=== PATIENT | female | born 1985 ===

== ENCOUNTER 2021-04-09 10:00 | Inpatient (IN) | payer MEDICAID ==
[2021-04-09] MEDS ORDERED: TERBUTALINE 1 MG/1 ML INJ SUB-Q PRN (11:31)
[2021-04-09] MEDS ORDERED: LIDOCAINE (2%) 20 MG/1 ML VIAL 20 ML MDV INFILTRATI ONE (11:31)
[2021-04-09] MEDS ORDERED: miSOPROStol 200 MCG TAB PR PRN (11:31)
[2021-04-09] MEDS ORDERED: CARBOPROST TROMETHAMINE 250 MCG/1 ML INJ IM PRN (11:31)
[2021-04-09] MEDS ORDERED: NALOXONE 0.4 MG/1 ML INJ IV PRN ×3 (11:31→17:30)
[2021-04-09] MEDS ORDERED: LOPERAMIDE 2 MG CAP PO PRN (11:31)
[2021-04-09] MEDS ORDERED: ACETAMINOPHEN 325 MG TAB PO PRN ×2 (11:31→17:30)
[2021-04-09] MEDS ORDERED: ePHEDrine SULFATE 50 MG/1 ML INJ IV PRN (11:31)
[2021-04-09] MEDS ORDERED: MINERAL OIL 30 ML ORAL LIQD PO PRN (11:31)
[2021-04-09] MEDS ORDERED: METHYLERGONOVINE MALEATE 0.2 MG/ML VIAL IM PRN (11:31)
[2021-04-09] MEDS ORDERED: OXYTOCIN 10 UNIT/1 ML INJ IM PRN (11:31)
[2021-04-09] MEDS ORDERED: BUTORPHANOL 2 MG/1 ML INJ IV PRN (11:31)
[2021-04-09] MEDS ORDERED: ONDANSETRON 4 MG/2 ML INJ IV PRN ×3 (11:31→19:00)
--- NOTE | 2021-04-09 11:43 | History and Physical Report ---
History of Present Illness Date of examination: 04/09/21 Date of admission: 04/09/2021 Chief complaint: Intense Labor Pains History of present illness: Care at [facility], course complicated by non- compliance with visits. Past History Past Medical History: no pertinent history Past Surgical History: no surgical history Family/Genetic History: diabetes (Mother) Social history: no significant social history - Obstetrical History Expected Date of Delivery: 04/06/21 Actual Gestation: 40 Week(s) 3 Day(s) : 5 Para: 4 Hx # Term Pregnancies: 4 Number of Living Children: 4 #1 Gender: Male year: 2,[birth year] Birthweight: 2.863 kg Method of Delivery: Vaginal Gestational age at delivery: 40 #2 Gender: Male year: 2,[birth year] Birthweight: 2.778 kg Method of Delivery: Vaginal Gestational age at delivery: 40 #3 Infant Gender: Male year: 2,016 Birthweight: 2.863 kg Method of Delivery: Vaginal Gestational age at delivery: 40 #4 Infant Gender: Female year: 2,017 Birthweight: 2.722 kg Method of Delivery: Vaginal Gestational age at delivery: 40 Medications and Allergies Allergies Allergy/AdvReac Type Severity Reaction Status Date / Time No Known Allergies Allergy Verified 07/05/15 09:44 Active Meds: Active Medications Acetaminophen (Acetaminophen 325 Mg Tab) 650 mg PO Q4H PRN PRN Reason: Pain, Mild (1-3) Butorphanol Tartrate (Butorphanol 2 Mg/1 Ml Inj) 1 mg IV Q2H PRN PRN Reason: Pain, Moderate(4-6) LABOR PAIN Carboprost Tromethamine (Carboprost Tromethamine 250 Mcg/1 Ml Inj) 250 mcg IM ONCE PRN PRN Reason: Uterine Bleeding Ephedrine Sulfate (Ephedrine Sulfate 50 Mg/1 Ml Inj) 10 mg IV Q2M PRN PRN Reason: Hypotension Fentanyl (Fentanyl 100 Mcg/2 Ml Inj) 100 mcg IV Q2H PRN PRN Reason: Pain,Severe (7-10) LABOR PAIN Oxytocin/Sodium Chloride (Pitocin/Ns 30 Unit/500ml) 30 units in 500 mls @ 2 mls/hr IV TITR RIO; Protocol Lactated Ringer's (Lactated Ringers) 1,000 mls @ 125 mls/hr IV DIRECT RIO Oxytocin/Sodium Chloride (Pitocin/Ns 30 Unit/500ml) 30 units in 500 mls @ 40 mls/hr IV TITR RIO; Protocol Lidocaine (Lidocaine (2%) 20 Mg/1 Ml Vial 20 Ml Mdv) 20 ml INFILTRATI ONCE ONE Stop: 04/09/21 11:32 Loperamide HCl (Loperamide 2 Mg Cap) 2 mg PO ONCE PRN PRN Reason: give with Hemabate Methylergonovine Maleate (Methylergonovine Maleate 0.2 Mg/Ml Vial) 0.2 mg IM ONCE PRN PRN Reason: Uterine Bleeding Mineral Oil (Mineral Oil 30 Ml Oral Liqd) 30 ml PO QHS PRN PRN Reason: Constipation Misoprostol (Misoprostol 200 Mcg Tab) 800 mcg GA ONCE PRN PRN Reason: Uterine Bleeding Naloxone HCl (Naloxone 0.4 Mg/1 Ml Inj) 0.1 mg IV Q2MIN PRN PRN Reason: Res Rate </= 8 or 02 SAT < 92% Ondansetron HCl (Ondansetron 4 Mg/2 Ml Inj) 4 mg IV Q8H PRN PRN Reason: Nausea And Vomiting Oxytocin (Oxytocin 10 Unit/1 Ml Inj) 10 unit IM ONCE PRN PRN Reason: Uterine Bleeding Terbutaline Sulfate (Terbutaline 1 Mg/1 Ml Inj) 0.25 mg SUB-Q ONCE PRN PRN Reason: Hyperstimulation/Hypertonicity Review of Systems All systems: negative - Vital Signs Vital signs: Vital Signs Pulse Pulse Ox 66 100 04/09/21 11:25 04/09/21 11:25 Temp Pulse Resp BP Pulse Ox 60 170/79 100 04/09/21 11:35 04/09/21 11:34 04/09/21 11:35 - Physical Exam Breasts: Positive: normal Cardiovascular: Regular rate Lungs: Positive: Clear to auscultation, Normal air movement Abdomen: Positive: normal appearance, soft, normal bowel sounds Genitourinary (Female): Positive: normal external genitalia, normal perenium Vagina: Positive: normal moisture Uterus: Positive: enlarged Anus/Rectum: Positive: normal perianal skin Extremities: Positive: normal - Obstetrical FHR: category 1 Uterine Contraction Monitor Mode: External Cervical Dilatation: 8 (Copious amount of thick mecoium stained fluids upon AROM @1123) Cervical Effacement Percentage: 70 station: -2 Uterine Contraction Pattern: Regular Uterine Tone Measurement Phase: Resting Uterine Contraction Intensity: Moderate Results All other labs normal. Assessment and Plan A: IUP @ 40 3/7 Weeks Category I Tracing Active Labor GBS Negative P: Admit to L&D Per Routine Orders AROM Anticipate
[2021-04-09] MEDS ORDERED: LACTATED RINGERS 1,000 ML IV SCH ×2 (11:45→14:00)
[2021-04-09] MEDS ORDERED: OXYTOCIN DRIP 30 UNITS/500 ML BAG IV SCH ×4 (12:00→16:00)
[2021-04-09 12:07] LABS: Hemoglobin 12.9 gm/dl (10.1-14.3); Mean Corpuscular HGB Conc 35 % (30-34); Mean Corpuscular Volume 91 fl (79-97); Platelet Count 103 K/mm3 (140-440); Red Blood Count 4.05 M/mm3 (3.65-5.03); Red Cell Distribution Width 13.1 % (13.2-15.2)
[2021-04-09] MEDS: fentaNYL 100 MCG/2 ML INJ IV PRN ×2 (12:56→20:29)
[2021-04-09] MEDS ORDERED: BICITRA ORAL LIQD 30ML ONE ×2 (13:50→13:51)
[2021-04-09] MEDS ORDERED: METOCLOPRAMIDE 10 MG/2 ML INJ ONE (13:50)
[2021-04-09] MEDS ORDERED: ceFAZolin/STERILE WATER 2 GM/20 ML SYRINGE IV ONE (13:50)
[2021-04-09] MEDS ORDERED: FAMOTIDINE 20 MG/2 ML INJ IV ONE ×2 (13:50→13:51)
[2021-04-09] MEDS ORDERED: METOCLOPRAMIDE 10 MG/2 ML INJ IV ONE (13:51)
[2021-04-09] MEDS ORDERED: ceFAZolin/Water 2 GM/20 ML 2 GM/20 ML SYRINGE IV ONE (13:51)
[2021-04-09] MEDS ORDERED: BICITRA ORAL LIQD 30ML PO ONE (13:51)
--- NOTE | 2021-04-09 13:51 | Progress Note ---
Assessment and Plan A: IUP @ 40 3/7 Weeks Category I Tracing Active Labor Breech Presentation GBS Negative P: Consult Dr. Lanier for Stat Pre-Op orders Transfer patient to OR Subjective - Subjective Date of service: 04/09/21 Interval history: Care at [facility], course complicated by non- compliance with visits. Objective - Vital Signs Vital Signs: Vital Signs - 12hr 04/09/21 04/09/21 04/09/21 11:25 11:30 11:31 Temperature Pulse Rate 66 58 L 57 L Respiratory Rate Blood Pressure 167/91 O2 Sat by Pulse 100 99 Oximetry 04/09/21 04/09/21 04/09/21 11:34 11:35 11:40 Temperature Pulse Rate 61 60 57 L Respiratory Rate Blood Pressure 170/79 O2 Sat by Pulse 100 99 Oximetry 04/09/21 04/09/21 04/09/21 11:43 11:45 11:50 Temperature 98.1 F Pulse Rate 57 L 62 Respiratory Rate Blood Pressure O2 Sat by Pulse 100 99 100 Oximetry 04/09/21 04/09/21 04/09/21 11:55 12:00 12:05 Temperature Pulse Rate 60 61 62 Respiratory Rate Blood Pressure O2 Sat by Pulse 99 99 98 Oximetry 04/09/21 04/09/21 04/09/21 12:10 12:15 12:20 Temperature Pulse Rate 59 L 60 62 Respiratory Rate Blood Pressure O2 Sat by Pulse 99 99 99 Oximetry 04/09/21 04/09/21 04/09/21 12:25 12:30 12:35 Temperature Pulse Rate 77 63 69 Respiratory Rate Blood Pressure O2 Sat by Pulse 100 99 99 Oximetry 04/09/21 04/09/21 04/09/21 12:37 12:40 12:45 Temperature Pulse Rate 74 60 61 Respiratory Rate Blood Pressure 190/102 O2 Sat by Pulse 98 99 Oximetry 04/09/21 04/09/21 04/09/21 12:48 12:50 12:55 Temperature Pulse Rate 62 74 68 Respiratory Rate Blood Pressure 163/81 O2 Sat by Pulse 99 99 Oximetry 04/09/21 04/09/21 04/09/21 12:56 13:00 13:01 Temperature Pulse Rate 62 73 Respiratory 22 Rate Blood Pressure O2 Sat by Pulse 98 93 Oximetry 04/09/21 04/09/21 04/09/21 13:04 13:05 13:10 Temperature Pulse Rate 67 82 79 Respiratory Rate Blood Pressure 161/79 O2 Sat by Pulse 98 97 Oximetry 04/09/21 04/09/21 04/09/21 13:15 13:19 13:20 Temperature Pulse Rate 68 65 74 Respiratory Rate Blood Pressure 167/81 O2 Sat by Pulse 99 99 Oximetry 04/09/21 04/09/21 04/09/21 13:25 13:27 13:30 Temperature Pulse Rate 93 H 57 L 92 H Respiratory Rate Blood Pressure O2 Sat by Pulse 96 90 96 Oximetry 04/09/21 04/09/21 04/09/21 13:32 13:33 13:37 Temperature Pulse Rate 83 66 88 Respiratory Rate Blood Pressure 161/78 O2 Sat by Pulse 93 98 Oximetry 04/09/21 04/09/21 13:40 13:43 Temperature Pulse Rate 55 L 82 Respiratory Rate Blood Pressure O2 Sat by Pulse 82 L 98 Oximetry - Exam Breasts: normal Abdomen: Present: normal appearance, soft Uterus: Present: normal, firm, fundal height above umbilicus FHR: category 1 Uterine Contraction Monitor Mode: External Cervical Dilatation: 10 (Breech presentation; thick meconium) Cervical Effacement Percentage: 100 station: +1 Uterine Contraction Pattern: Regular Uterine Tone Measurement Phase: Resting Uterine Contraction Intensity: Moderate Extremities: normal - Labs Labs: Abnormal Labs 04/09/21 11:10 MCHC 35 H RDW 13.1 L Plt Count 103 L Laboratory Results - last 24 hr 04/09/21 11:10 WBC 10.5 RBC 4.05 Hgb 12.9 Hct 37.0 MCV 91 MCH 32 MCHC 35 H RDW 13.1 L Plt Count 103 L
[2021-04-09] MEDS ORDERED: LIDOCAINE MPF (2%) 20 MG/1 ML VIAL 5 ML ONE (13:52)
[2021-04-09] MEDS ORDERED: SUCCINYLCHOLINE CHLORIDE 200 MG/10 ML INJ MDV ONE (13:53)
[2021-04-09] MEDS ORDERED: propofoL 200 MG/20 ML VIAL IV ONE (13:53)
[2021-04-09] MEDS ORDERED: SODIUM CHLORIDE 0.9% IRR 1,500 ML BOTTLE IR ONE (13:59)
[2021-04-09] MEDS ORDERED: ceFAZolin/Water 2 GM/20 ML 2 GM/20 ML SYRINGE IV NR (14:00)
[2021-04-09] MEDS ORDERED: HYDROmorphone 1 MG/1 ML INJ ONE (14:07)
[2021-04-09] MEDS ORDERED: KETOROLAC 30 MG/1 ML INJ ONE (14:07)
[2021-04-09] MEDS ORDERED: ONDANSETRON 4 MG/2 ML INJ ONE (14:07)
[2021-04-09] MEDS ORDERED: ePHEDrine SULFATE 50 MG/1 ML INJ ONE (14:18)
[2021-04-09] MEDS ORDERED: dexAMETHasone 20 MG/5 ML VIAL ONE (14:21)
[2021-04-09] MEDS ORDERED: BUPIVACAINE/PF (0.25%) 2.5 MG/ML 30 ML VIAL INFILTRATI ONE (14:21)
[2021-04-09] MEDS ORDERED: LACTATED RINGERS 1,000 ML ONE (15:19)
--- NOTE | 2021-04-09 15:52 | Procedure Note ---
OB Delivery Note - Delivery Date of Delivery: 04/09/21 Surgeon: MARLO JOSEPH JR Estimated blood loss: other (1490cc) - Section Preop diagnosis: breech Postop diagnosis: same section procedure: section, primary low transverse Disposition: PACU Complications: none Narrative: Indication: 36-year-old at 40w3d with reportedly on complicated plan of care presenting in active labor, however during the labor course was found to be breech presentation, fully dilated, with thick meconium for emergency primary C- section for malpresentation. Findings: Normal uterus, tubes and ovaries. Thick meconium stained fluid. No nuchal cord. Distended bladder, hernandez not placed prior to start of procedure given parts noted at perineum. Mild uterine atony improved with hemabate. Delivery of male at 1403 Weight 3370g Height 20.5 in APGARS 4/8 QBL 1490cc IVF 1800cc UOP 300cc Procedure: Patient was taken to the operating room prepped and draped urgently after splashing Betadine on the abdomen without 3 minutes of bleeding. Patient was intubated given speed level of dilation. Pfannenstiel skin incision was made and carried down to the underlying fascia. Fascia was incised and the incision was distended bilaterally. Rectus fascia was dissected off the rectus muscle superiorly and inferiorly. Peritoneum was identified and entered. Peritoneal incision extended superiorly and inferiorly. The bladder was visualized. The bladder blade was placed. Uterine hysterotomy incision was made and extended bilaterally. The baby was delivered in a breech fashion starting with the right leg, followed by the right leg, followed by the left arm, followed by the right arm, followed by the head. Baby was bulb suction at delivery. The cord was cut and clamped and handed off to the team. The placenta was delivered spontaneously. The uterus was exteriorized and cleared of all clots and debris. Uterine incision was closed with a 0 Vicryl in a running locked fashion. Good hemostasis was noted after multiple [id number] and running sutures applied to the uterine incision. Uterine atony was noted and hemabate was given x 1 with appropriate response. Surgicel powder and Surgicel was applied to the uterine incisional base to provide hemostasis. The bladder grossly appeared to be intact. Uterus, tubes, and ovaries were returned to the abdominal cavity. Bilateral gutters were cleared and the abdomen and pelvis were irrigated. Good hemostasis noted. The rectus muscle was reapproximated with 2-0 Vicryl. Attention was directed towards the rectus fascia which was reapproximated with 0 PDS in a running fashion. The subcutaneous tissue was irrigated and reapproximated with 2-0 Vicryl in a running fashion. Skin was closed with a 4-0 Vicryl in a subcuticular fashion. The procedure was completed and the patient tolerated the procedure well. All instruments and lap counts were correct x2. - A at 1 minute: 4 at 5 minutes: 8 Infant Gender: Male
[2021-04-09] MEDS ORDERED: hydrALAZINE 20 MG/1 ML INJ IV PRN ×2 (16:15→17:30)
[2021-04-09] MEDS ORDERED: hydrALAZINE 20 MG/1 ML INJ ONE (16:16)
--- NOTE | 2021-04-09 16:39 | Anesthesia Consultation ---
Anesthesia Consult and Med Hx Date of service: 04/09/21 - Airway Anesthetic Teeth Evaluation: Good ROM Head & Neck: Adequate Mental/Hyoid Distance: Adequate Mallampati Class: Class I Intubation Access Assessment: Good - Pulmonary Exam CTA: Yes - Cardiac Exam Cardiac Exam: RRR - Pre-Operative Health Status ASA Pre-Surgery Classification: ASA2, Emergency Proposed Anesthetic Plan: General Nerve Block: TAP - Pulmonary Hx Smoking: No Hx Asthma: No COPD: No Hx Pneumonia: No Hx Sleep Apnea: No - Cardiovascular System Hx Hypertension: No Hx Heart Attack/AMI: No Hx Angina: No - Central Nervous System Hx Seizures: No Hx Psychiatric Problems: No - Gastrointestinal Hx Gastroesophageal Reflux Disease: No - Endocrine Hx Renal Disease: No Hx End Stage Renal Disease: No Hx Liver Disease: No Hx Insulin Dependent Diabetes: No Hx Non-Insulin Dependent Diabetes: No Hx Hypothyroidism: No Hx Hyperthyroidism: No - Hematic Hx Anemia: No Hx Sickle Cell Disease: No - Other Systems Hx Alcohol Use: No
--- NOTE | 2021-04-09 16:39 | Anesthesia Day of Surgery ---
Anesthesia Day of Surgery - Day of Surgery Patient Examined: Yes Patient H&P Reviewed: Yes Patient is NPO: Yes Beta Blockers: No Cardiac Clearance: No Pulmonary Clearance: No Bahman's Test: N/A
[2021-04-09] MEDS ORDERED: MAGNESIUM SULFATE 4 GM/100 ML BAG IV SCH (17:00)
[2021-04-09] MEDS ORDERED: MORPHINE 4 MG/1 ML INJ IV PRN (17:30)
[2021-04-09] MEDS ORDERED: SENNOSIDES 8.6 MG TAB PO PRN (17:30)
[2021-04-09] MEDS ORDERED: oxyCODONE /ACETAMINOPHEN 5-325MG TAB PO PRN (17:30)
[2021-04-09] MEDS ORDERED: PROMETHAZINE 25 MG RECT SUPP PR PRN (17:30)
[2021-04-09] MEDS ORDERED: SIMETHICONE 80 MG CHEW TAB PO PRN (17:30)
[2021-04-09] MEDS ORDERED: HYDROmorphone 1 MG/1 ML INJ IV PRN (17:30)
[2021-04-09] MEDS ORDERED: LANOLIN/ZINC/DIMETHICONE (LANSINOH) 7 GM TP PRN (17:30)
[2021-04-09] MEDS ORDERED: WITCH HAZEL/ GLYCERIN PAD TP PRN (18:00)
[2021-04-09] MEDS ORDERED: MAGNESIUM SULFATE 40GM/1000ML 40 GM/1,000 ML BAG IV SCH (18:00)
[2021-04-09 19:22] LABS: Alanine Aminotransferase 29 units/L (7-56); Uric Acid 4.8 mg/dL (3.5-7.6)
--- NOTE | 2021-04-09 19:51 | Event Note ---
Date: 04/09/21 Late entry. Immediately after delivery once stabilized patient had multiple elevated blood pressures in the 160s requiring hydralazine x2. Given this finding PI labs ordered and patient was presumed severe preeclampsia by blood pressure for 24-hours of magnesium. IV antihypertensives as needed as needed for high blood pressure.
[2021-04-09 21:03] LABS: Hematocrit 33.9 % (30.3-42.9); Hemoglobin 11.4 gm/dl (10.1-14.3); Mean Corpuscular HGB Conc 34 % (30-34); Mean Corpuscular Volume 92 fl (79-97); Red Blood Count 3.68 M/mm3 (3.65-5.03); Red Cell Distribution Width 13.2 % (13.2-15.2)
[2021-04-09 21:04] LABS: Platelet Count 99 K/mm3 (140-440)
[2021-04-09] MEDS ORDERED: HYDROCORTISONE 25 MG RECTAL SUPP PR PRN (22:00)
[2021-04-09] MEDS ORDERED: MAGNESIUM HYDROXIDE (MOM) ORAL LIQD UDC PO PRN (22:00)
[2021-04-09 22:06] LABS: Total Cells Counted 100
[2021-04-09 22:07] LABS: Platelet Estimate Consistent w Auto; RBC Morphology Normal
[2021-04-10 04:51] LABS: Hematocrit 30.3 % (30.3-42.9); Hemoglobin 10.6 gm/dl (10.1-14.3)
[2021-04-10] MEDS ORDERED: FLU VACC QUAD 2021-22(6MOS UP)/PF 60 MCG/0.5 ML SYRINGE IM ONE (06:00)
--- NOTE | 2021-04-10 11:42 | Progress Note ---
Assessment and Plan POD#1 C/Sect for breech on MgSO4 for preeclampsia, with headache now 1. Will stop the mag sulfate with level 7.8 and pt with headache, BP normal and pt to remain on labor and delivery for 24hrs post delivery 2. Will add labetalol 100mg bid if BP starts trending upwards 3. May remove hernandez cath with mag stopped after 2hrs if BP remains stable 4. Routine care. Subjective Date of service: 04/10/21 Principal diagnosis: POD#1 C/S for breech; now preeclampsia on mag sulfate Interval history: Pt admits to pain controlled well with meds, however pt has headache. Vag bleed scant. pt denies passing flatus. Denies N/V. Mag sulfate in progress and urinary output clear in hernandez cath. Objective - Constitutional Vitals: Vital Signs - 12hr 04/09/21 04/09/21 04/09/21 23:39 23:44 23:49 Temperature Pulse Rate 91 H 89 87 Respiratory Rate Blood Pressure 133/75 Blood Pressure [Right] O2 Sat by Pulse 98 98 97 Oximetry O2 Sat by Pulse Oximetry [ Throughout] 04/09/21 04/09/21 04/10/21 23:54 23:59 00:04 Temperature Pulse Rate 85 82 80 Respiratory Rate Blood Pressure Blood Pressure [Right] O2 Sat by Pulse 99 98 98 Oximetry O2 Sat by Pulse Oximetry [ Throughout] 04/10/21 04/10/21 04/10/21 00:09 00:14 00:19 Temperature Pulse Rate 87 83 82 Respiratory Rate Blood Pressure 134/74 Blood Pressure [Right] O2 Sat by Pulse 98 98 98 Oximetry O2 Sat by Pulse Oximetry [ Throughout] 04/10/21 04/10/21 04/10/21 00:24 00:29 00:34 Temperature Pulse Rate 87 86 86 Respiratory Rate Blood Pressure Blood Pressure [Right] O2 Sat by Pulse 98 98 98 Oximetry O2 Sat by Pulse Oximetry [ Throughout] 04/10/21 04/10/21 04/10/21 00:39 00:44 00:49 Temperature Pulse Rate 84 84 80 Respiratory Rate Blood Pressure 133/76 Blood Pressure [Right] O2 Sat by Pulse 98 98 98 Oximetry O2 Sat by Pulse Oximetry [ Throughout] 04/10/21 04/10/21 04/10/21 00:54 00:59 01:04 Temperature Pulse Rate 92 H 81 83 Respiratory Rate Blood Pressure Blood Pressure [Right] O2 Sat by Pulse 98 97 98 Oximetry O2 Sat by Pulse Oximetry [ Throughout] 04/10/21 04/10/21 04/10/21 01:09 01:14 01:19 Temperature Pulse Rate 85 83 82 Respiratory Rate Blood Pressure 132/73 Blood Pressure [Right] O2 Sat by Pulse 98 98 98 Oximetry O2 Sat by Pulse Oximetry [ Throughout] 04/10/21 04/10/21 04/10/21 01:24 01:29 01:34 Temperature Pulse Rate 87 86 84 Respiratory Rate Blood Pressure Blood Pressure [Right] O2 Sat by Pulse 99 98 98 Oximetry O2 Sat by Pulse Oximetry [ Throughout] 04/10/21 04/10/21 04/10/21 01:39 01:44 01:49 Temperature Pulse Rate 87 83 82 Respiratory 12 Rate Blood Pressure 134/78 Blood Pressure [Right] O2 Sat by Pulse 98 98 97 Oximetry O2 Sat by Pulse Oximetry [ Throughout] 04/10/21 04/10/21 04/10/21 01:54 01:59 02:04 Temperature Pulse Rate 83 84 84 Respiratory Rate Blood Pressure Blood Pressure [Right] O2 Sat by Pulse 98 98 98 Oximetry O2 Sat by Pulse Oximetry [ Throughout] 04/10/21 04/10/21 04/10/21 02:09 02:14 02:19 Temperature Pulse Rate 88 82 84 Respiratory Rate Blood Pressure 134/76 Blood Pressure [Right] O2 Sat by Pulse 99 98 98 Oximetry O2 Sat by Pulse Oximetry [ Throughout] 04/10/21 04/10/21 04/10/21 02:24 02:29 02:34 Temperature Pulse Rate 82 80 80 Respiratory Rate Blood Pressure Blood Pressure [Right] O2 Sat by Pulse 98 98 97 Oximetry O2 Sat by Pulse Oximetry [ Throughout] 04/10/21 04/10/21 04/10/21 02:39 02:44 02:49 Temperature Pulse Rate 88 77 77 Respiratory Rate Blood Pressure 132/74 Blood Pressure [Right] O2 Sat by Pulse 98 98 98 Oximetry O2 Sat by Pulse Oximetry [ Throughout] 04/10/21 04/10/21 04/10/21 02:54 02:59 03:04 Temperature Pulse Rate 82 86 78 Respiratory Rate Blood Pressure Blood Pressure [Right] O2 Sat by Pulse 97 98 97 Oximetry O2 Sat by Pulse Oximetry [ Throughout] 04/10/21 04/10/21 04/10/21 03:09 03:14 03:19 Temperature Pulse Rate 79 80 77 Respiratory Rate Blood Pressure 133/76 Blood Pressure [Right] O2 Sat by Pulse 97 97 97 Oximetry O2 Sat by Pulse Oximetry [ Throughout] 04/10/21 04/10/21 04/10/21 03:24 03:29 03:30 Temperature Pulse Rate 76 77 Respiratory 13 Rate Blood Pressure Blood Pressure [Right] O2 Sat by Pulse 97 97 98 Oximetry O2 Sat by Pulse Oximetry [ Throughout] 04/10/21 04/10/21 04/10/21 03:34 03:39 03:44 Temperature Pulse Rate 76 74 77 Respiratory Rate Blood Pressure 122/68 Blood Pressure [Right] O2 Sat by Pulse 97 97 98 Oximetry O2 Sat by Pulse Oximetry [ Throughout] 04/10/21 04/10/21 04/10/21 03:49 03:54 03:59 Temperature Pulse Rate 76 77 74 Respiratory Rate Blood Pressure Blood Pressure [Right] O2 Sat by Pulse 97 97 97 Oximetry O2 Sat by Pulse Oximetry [ Throughout] 04/10/21 04/10/21 04/10/21 04:04 04:09 04:14 Temperature Pulse Rate 95 H 87 78 Respiratory Rate Blood Pressure 131/74 Blood Pressure [Right] O2 Sat by Pulse 98 98 98 Oximetry O2 Sat by Pulse Oximetry [ Throughout] 04/10/21 04/10/21 04/10/21 04:19 04:24 04:29 Temperature Pulse Rate 87 88 79 Respiratory Rate Blood Pressure Blood Pressure [Right] O2 Sat by Pulse 97 98 99 Oximetry O2 Sat by Pulse Oximetry [ Throughout] 04/10/21 04/10/21 04/10/21 04:34 04:39 04:44 Temperature Pulse Rate 84 85 85 Respiratory Rate Blood Pressure 133/72 Blood Pressure [Right] O2 Sat by Pulse 97 99 99 Oximetry O2 Sat by Pulse Oximetry [ Throughout] 04/10/21 04/10/21 04/10/21 04:49 04:54 04:59 Temperature Pulse Rate 80 83 84 Respiratory Rate Blood Pressure Blood Pressure [Right] O2 Sat by Pulse 99 98 98 Oximetry O2 Sat by Pulse Oximetry [ Throughout] 04/10/21 04/10/21 04/10/21 05:04 05:09 05:14 Temperature Pulse Rate 86 79 76 Respiratory Rate Blood Pressure 129/67 Blood Pressure [Right] O2 Sat by Pulse 98 98 97 Oximetry O2 Sat by Pulse Oximetry [ Throughout] 04/10/21 04/10/21 04/10/21 05:19 05:24 05:29 Temperature Pulse Rate 76 77 74 Respiratory Rate Blood Pressure Blood Pressure [Right] O2 Sat by Pulse 98 97 97 Oximetry O2 Sat by Pulse Oximetry [ Throughout] 04/10/21 04/10/21 04/10/21 05:30 05:34 05:39 Temperature Pulse Rate 76 73 Respiratory Rate Blood Pressure Blood Pressure [Right] O2 Sat by Pulse 96 97 97 Oximetry O2 Sat by Pulse Oximetry [ Throughout] 04/10/21 04/10/21 04/10/21 05:44 05:49 05:54 Temperature Pulse Rate 74 71 71 Respiratory Rate Blood Pressure 112/64 Blood Pressure [Right] O2 Sat by Pulse 96 96 96 Oximetry O2 Sat by Pulse Oximetry [ Throughout] 04/10/21 04/10/21 04/10/21 05:59 06:04 06:09 Temperature Pulse Rate 71 80 84 Respiratory Rate Blood Pressure Blood Pressure [Right] O2 Sat by Pulse 96 98 98 Oximetry O2 Sat by Pulse Oximetry [ Throughout] 04/10/21 04/10/21 04/10/21 06:14 06:19 06:24 Temperature Pulse Rate 79 77 77 Respiratory Rate Blood Pressure 130/76 Blood Pressure [Right] O2 Sat by Pulse 98 98 98 Oximetry O2 Sat by Pulse Oximetry [ Throughout] 04/10/21 04/10/21 04/10/21 06:29 06:34 06:39 Temperature Pulse Rate 79 78 77 Respiratory Rate Blood Pressure Blood Pressure [Right] O2 Sat by Pulse 98 98 98 Oximetry O2 Sat by Pulse Oximetry [ Throughout] 04/10/21 04/10/21 04/10/21 06:44 06:49 06:54 Temperature Pulse Rate 76 75 77 Respiratory Rate Blood Pressure 133/69 Blood Pressure [Right] O2 Sat by Pulse 98 98 99 Oximetry O2 Sat by Pulse Oximetry [ Throughout] 04/10/21 04/10/21 04/10/21 06:59 07:04 07:09 Temperature Pulse Rate 80 78 77 Respiratory Rate Blood Pressure Blood Pressure [Right] O2 Sat by Pulse 98 98 99 Oximetry O2 Sat by Pulse Oximetry [ Throughout] 04/10/21 04/10/2104/10/21 07:14 07:19 07:24 Temperature Pulse Rate 72 77 75 Respiratory Rate Blood Pressure 127/67 Blood Pressure [Right] O2 Sat by Pulse 98 98 98 Oximetry O2 Sat by Pulse Oximetry [ Throughout] 04/10/21 04/10/21 04/10/21 07:29 07:34 07:39 Temperature Pulse Rate 75 74 72 Respiratory Rate Blood Pressure Blood Pressure [Right] O2 Sat by Pulse 98 97 97 Oximetry O2 Sat by Pulse Oximetry [ Throughout] 04/10/21 04/10/21 04/10/21 07:44 07:49 07:52 Temperature Pulse Rate 70 74 84 Respiratory Rate Blood Pressure 106/58 112/62 Blood Pressure [Right] O2 Sat by Pulse 96 97 Oximetry O2 Sat by Pulse Oximetry [ Throughout] 04/10/21 04/10/21 04/10/21 07:54 07:55 07:59 Temperature 98.2 F Pulse Rate 87 79 Respiratory 17 Rate Blood Pressure Blood Pressure 112/62 [Right] O2 Sat by Pulse 98 98 Oximetry O2 Sat by Pulse 98 Oximetry [ Throughout] 04/10/21 04/10/21 04/10/21 08:04 08:09 08:14 Temperature Pulse Rate 77 74 70 Respiratory Rate Blood Pressure 105/55 Blood Pressure [Right] O2 Sat by Pulse 97 97 96 Oximetry O2 Sat by Pulse Oximetry [ Throughout] 04/10/21 04/10/21 04/10/21 08:19 08:24 08:29 Temperature Pulse Rate 72 70 72 Respiratory Rate Blood Pressure Blood Pressure [Right] O2 Sat by Pulse 97 97 97 Oximetry O2 Sat by Pulse Oximetry [ Throughout] 04/10/21 04/10/21 04/10/21 08:34 08:39 08:44 Temperature Pulse Rate 73 74 71 Respiratory Rate Blood Pressure 118/63 Blood Pressure [Right] O2 Sat by Pulse 97 97 97 Oximetry O2 Sat by Pulse Oximetry [ Throughout] 04/10/21 04/10/21 04/10/21 08:49 08:54 08:59 Temperature Pulse Rate 68 70 69 Respiratory Rate Blood Pressure Blood Pressure [Right] O2 Sat by Pulse 97 97 97 Oximetry O2 Sat by Pulse Oximetry [ Throughout] 04/10/21 04/10/21 04/10/21 09:04 09:09 09:14 Temperature Pulse Rate 72 75 78 Respiratory Rate Blood Pressure 117/61 Blood Pressure [Right] O2 Sat by Pulse 97 98 98 Oximetry O2 Sat by Pulse Oximetry [ Throughout] 04/10/21 04/10/21 04/10/21 09:19 09:24 09:29 Temperature Pulse Rate 77 75 82 Respiratory Rate Blood Pressure Blood Pressure [Right] O2 Sat by Pulse 98 98 97 Oximetry O2 Sat by Pulse Oximetry [ Throughout] 04/10/21 04/10/21 04/10/21 09:34 09:39 09:44 Temperature Pulse Rate 77 75 74 Respiratory Rate Blood Pressure 137/70 Blood Pressure [Right] O2 Sat by Pulse 98 98 97 Oximetry O2 Sat by Pulse Oximetry [ Throughout] 04/10/21 04/10/21 04/10/21 09:49 09:54 09:59 Temperature Pulse Rate 71 74 79 Respiratory Rate Blood Pressure Blood Pressure [Right] O2 Sat by Pulse 97 98 99 Oximetry O2 Sat by Pulse Oximetry [ Throughout] 04/10/21 04/10/21 04/10/21 10:04 10:09 10:14 Temperature Pulse Rate 70 70 69 Respiratory Rate Blood Pressure 109/58 Blood Pressure [Right] O2 Sat by Pulse 97 97 97 Oximetry O2 Sat by Pulse Oximetry [ Throughout] 04/10/21 04/10/21 04/10/21 10:19 10:24 10:29 Temperature Pulse Rate 71 76 70 Respiratory Rate Blood Pressure Blood Pressure [Right] O2 Sat by Pulse 96 97 97 Oximetry O2 Sat by Pulse Oximetry [ Throughout] 04/10/21 04/10/21 04/10/21 10:34 10:39 10:44 Temperature Pulse Rate 77 79 76 Respiratory Rate Blood Pressure 122/72 Blood Pressure [Right] O2 Sat by Pulse 98 98 98 Oximetry O2 Sat by Pulse Oximetry [ Throughout] 04/10/21 04/10/21 04/10/21 10:49 10:54 10:59 Temperature Pulse Rate 77 77 78 Respiratory Rate Blood Pressure Blood Pressure [Right] O2 Sat by Pulse 98 98 98 Oximetry O2 Sat by Pulse Oximetry [ Throughout] 04/10/21 04/10/21 04/10/21 11:04 11:09 11:14 Temperature Pulse Rate 78 83 78 Respiratory Rate Blood Pressure 130/80 Blood Pressure [Right] O2 Sat by Pulse 98 98 98 Oximetry O2 Sat by Pulse Oximetry [ Throughout] 04/10/21 04/10/21 04/10/21 11:19 11:24 11:29 Temperature Pulse Rate 84 78 76 Respiratory Rate Blood Pressure Blood Pressure [Right] O2 Sat by Pulse 97 99 99 Oximetry O2 Sat by Pulse Oximetry [ Throughout] 04/10/21 11:34 Temperature Pulse Rate 73 Respiratory Rate Blood Pressure Blood Pressure [Right] O2 Sat by Pulse 99 Oximetry O2 Sat by Pulse Oximetry [ Throughout] General appearance: Present: no acute distress - Respiratory Respiratory effort: normal - Breasts Breasts: deferred - Cardiovascular Rhythm: regular Extremities: No edema - Gastrointestinal General gastrointestinal: Present: soft (Incision C/D/I with dressing in place), non-tender, hypoactive bowel sounds - Neurologic Neurologic: moves all extremities - Psychiatric Psychiatric: cooperative - Labs CBC & Chem 7: 04/10/21 04:34 04/09/21 Unknown Labs: Abnormal lab results 04/09/21 04/09/21 04/09/21 Range/Units 11:10 14:29 14:32 WBC (4.5-11.0) K/mm3 MCHC 35 H (30-34) % RDW 13.1 L (13.2-15.2) % Plt Count 103 L (140-440) K/mm3 Lymphocytes % (Manual) (13.4-35.0) % Seg Neutrophils # Man (1.8-7.7) K/mm3 Lymphocytes # (Manual) (1.2-5.4) K/mm3 ABG pH 7.004 L 7.104 L (7.320-7.450) POC ABG pCO2 57.1 H (32.0-48.0) mmHg POC ABG pO2 21.6 L 40.7 L (83-108) mmHg ABG Oxyhemoglobin 27.3 L 69.7 L (94-98) ABG Sodium 132.9 L (136.0-145.0) mmol/L ABG Potassium 4.6 H 4.7 H (3.40-4.50) mmol/L Carboxyhemoglobin 0.3 L (0.5-1.5) Magnesium (1.7-2.3) mg/dL AST (5-40) units/L Lactate Dehydrogenase (91-180) units/L Arterial Blood Ionized Calcium 5.4 H 5.5 H (4.6-5.3) mg/dL 04/09/21 04/09/21 04/09/21 Range/Units 19:38 19:38 Unknown WBC 19.1 H (4.5-11.0) K/mm3 MCHC (30-34) % RDW (13.2-15.2) % Plt Count 99 L (140-440) K/mm3 Lymphocytes % (Manual) 3.0 L (13.4-35.0) % Seg Neutrophils # Man 18.0 H (1.8-7.7) K/mm3 Lymphocytes # (Manual) 0.6 L (1.2-5.4) K/mm3 ABG pH (7.320-7.450) POC ABG pCO2 (32.0-48.0) mmHg POC ABG pO2 (83-108) mmHg ABG Oxyhemoglobin (94-98) ABG Sodium (136.0-145.0) mmol/L ABG Potassium (3.40-4.50) mmol/L Carboxyhemoglobin (0.5-1.5) Magnesium 5.20 H (1.7-2.3) mg/dL AST 47 H (5-40) units/L Lactate Dehydrogenase 211 H (91-180) units/L Arterial Blood Ionized Calcium (4.6-5.3) mg/dL 04/10/21 04/10/21 Range/Units 01:28 10:30 WBC (4.5-11.0) K/mm3 MCHC (30-34) % RDW (13.2-15.2) % Plt Count (140-440) K/mm3 Lymphocytes % (Manual) (13.4-35.0) % Seg Neutrophils # Man (1.8-7.7) K/mm3 Lymphocytes # (Manual) (1.2-5.4) K/mm3 ABG pH (7.320-7.450) POC ABG pCO2 (32.0-48.0) mmHg POC ABG pO2 (83-108) mmHg ABG Oxyhemoglobin (94-98) ABG Sodium (136.0-145.0) mmol/L ABG Potassium (3.40-4.50) mmol/L Carboxyhemoglobin (0.5-1.5) Magnesium 6.30 H 7.80 H (1.7-2.3) mg/dL AST (5-40) units/L Lactate Dehydrogenase (91-180) units/L Arterial Blood Ionized Calcium (4.6-5.3) mg/dL Medications & Allergies - Medications Allergies/Adverse Reactions: Allergies No Known Allergies Allergy (Verified 07/05/15 09:44) Home Medications: Home Medications Medication Instructions Recorded Confirmed Last Taken Type Ibuprofen [Motrin 800 MG tab] 800 mg PO Q6H PRN #30 tablet 04/09/21 Unknown Rx One Daily Tablet 1 tab PO DAILY 04/09/21 04/09/21 04/04/21 History oxyCODONE /ACETAMINOPHEN [Percocet 1 tab PO Q6H PRN #30 tablet 04/09/21 Unknown Rx 5/325 mg] Active Medications: Generic Name Dose Route Start Last Admin Trade Name Freq PRN Reason Stop Dose Admin Acetaminophen 650 mg 04/09/21 17:30 Acetaminophen 325 Mg Tab PO Q4H PRN Fever >100.5/BOCANEGRA Butorphanol Tartrate 1 mg 04/09/21 11:31 Butorphanol 2 Mg/1 Ml Inj IV Q2H PRN Pain, Moderate(4-6) LABOR PAIN Carboprost Tromethamine 250 mcg 04/09/21 11:31 Carboprost Tromethamine 250 Mcg/1 Ml Inj IM ONCE PRN Uterine Bleeding Ephedrine Sulfate 10 mg 04/09/21 11:31 Ephedrine Sulfate 50 Mg/1 Ml Inj IV Q2M PRN Hypotension Fentanyl 100 mcg 04/09/21 11:31 04/09/21 12:56 Fentanyl 100 Mcg/2 Ml Inj IV 100 mcg Q2H PRN Administration Pain,Severe (7-10) LABOR PAIN Hydralazine HCl 10 mg 04/09/21 17:30 04/09/21 16:30 Hydralazine 20 Mg/1 Ml Inj IV 10 mg Q30MIN PRN Administration Hypertension Hydrocortisone Acetate 25 mg 04/09/21 22:00 Hydrocortisone 25 Mg Rectal Supp IA BID PRN Hemorrhoids Oxytocin/Sodium Chloride 30 units in 500 mls @ 2 mls/hr 04/09/21 12:00 04/09/21 12:58 Pitocin/Ns 30 Unit/500ml IV 2 ml/hr TITR RIO 2 mls/hr Administration Protocol Lactated Ringer's 1,000 mls @ 125 mls/hr 04/09/21 11:45 04/09/21 12:31 Lactated Ringers IV 125 mls/hr DIRECT RIO Administration Oxytocin/Sodium Chloride 30 units in 500 mls @ 40 mls/hr 04/09/21 12:00 Pitocin/Ns 30 Unit/500ml IV TITR RIO Protocol Lactated Ringer's 1,000 mls @ 2,250 mls/hr 04/09/21 14:00 Lactated Ringers IV 04/10/21 14:27 PREOP RIO Oxytocin/Sodium Chloride 30 units in 500 mls @ 0 mls/hr 04/09/21 14:00 Pitocin/Ns 30 Unit/500ml IV TITR RIO Protocol As Directed Oxytocin/Sodium Chloride 30 units in 500 mls @ 40 mls/hr 04/09/21 16:00 Pitocin/Ns 30 Unit/500ml IV TITR RIO Protocol Magnesium Sulfate 40 gm in 1,000 mls @ 50 mls/hr 04/09/21 18:00 04/09/21 19:01 Magnesium Sulfate 40gm/1000ml IV 2 gm/hr DIRECT RIO 50 mls/hr Administration 2 GM/HR Cefazolin Sodium 2 gm/ Sodium 100 mls @ 200 mls/hr 04/09/21 19:15 04/10/21 04:03 Chloride IV 200 mls/hr Q8H RIO Administration Protocol Ibuprofen 800 mg 04/09/21 17:30 Ibuprofen 800 Mg Tab PO Q6H PRN Pain, Mild (1-3) Loperamide HCl 2 mg 04/09/21 11:31 Loperamide 2 Mg Cap PO ONCE PRN give with Hemabate Magnesium Hydroxide 30 ml 04/09/21 22:00 Magnesium Hydroxide (Mom) Oral Liqd Udc PO QHS PRN Constip Unrelieved By Senna Methylergonovine Maleate 0.2 mg 04/09/21 11:31 Methylergonovine Maleate 0.2 Mg/Ml Vial IM ONCE PRN Uterine Bleeding Mineral Oil 30 ml 04/09/21 11:31 Mineral Oil 30 Ml Oral Liqd PO QHS PRN Constipation Misoprostol 800 mcg 04/09/21 11:31 Misoprostol 200 Mcg Tab IA ONCE PRN Uterine Bleeding Morphine Sulfate 4 mg 04/09/21 17:30 04/09/21 20:39 Morphine 4 Mg/1 Ml Inj IV 4 mg Q4H PRN Administration Pain , Severe (7-10) Multi-Ingredient Ointment 1 applic 04/09/21 17:30 Lanolin/Zinc/Dimethicone (Lansinoh) 7 Gm TP PRN PRN dryness/cracking Naloxone HCl 0.1 mg 04/09/21 11:31 Naloxone 0.4 Mg/1 Ml Inj IV Q2MIN PRN Res Rate </= 8 or 02 SAT < 92% Naloxone HCl 0.1 mg 04/09/21 17:30 Naloxone 0.4 Mg/1 Ml Inj IV Q2MIN PRN Res Rate </= 8 or 02 SAT < 92% Naloxone HCl 0.1 mg 04/09/21 17:30 Naloxone 0.4 Mg/1 Ml Inj IV Q2MIN PRN Res Rate </= 8 or 02 SAT < 92% Ondansetron HCl 4 mg 04/09/21 11:31 Ondansetron 4 Mg/2 Ml Inj IV Q8H PRN Nausea And Vomiting Ondansetron HCl 4 mg 04/09/21 19:00 Ondansetron 4 Mg/2 Ml Inj IV Q8H PRN Nausea And Vomiting Oxycodone/Acetaminophen 1 tab 04/09/21 17:30 Oxycodone /Acetaminophen 5-325mg Tab PO Q6H PRN Pain, Moderate (4-6) Oxytocin 10 unit 04/09/21 11:31 Oxytocin 10 Unit/1 Ml Inj IM ONCE PRN Uterine Bleeding Promethazine HCl 25 mg 04/09/21 17:30 Promethazine 25 Mg Rect Supp IA Q6H PRN N/V IF NPO AND NO IV ACCESS Senna 17.2 mg 04/09/21 17:30 Sennosides 8.6 Mg Tab PO QHS PRN Constipation Simethicone 80 mg 04/09/21 17:30 Simethicone 80 Mg Chew Tab PO Q6H PRN Gas pain Sodium Chloride 10 ml 04/09/21 16:00 Sodium Chloride 0.9% 10 Ml Flush Syringe IV PRN PRN flush Terbutaline Sulfate 0.25 mg 04/09/21 11:31 Terbutaline 1 Mg/1 Ml Inj SUB-Q ONCE PRN Hyperstimulation/Hypertonicity Witch Shirley/Glycerin 1 each 04/09/21 18:00 Witch Shirley/ Glycerin Pad TP PRN PRN Hemorrhoids/cleansing/soothing
--- NOTE | 2021-04-10 12:30 | Post Anesthesia Evaluation ---
- Post Anesthesia Evaluation Patient Participated: Yes Airway Patent: Yes Stable Respiratory Function: Yes Nausea/Vomiting: No Temp > 96.8F: Yes Pain Manageable: Yes Adequeate Hydration: Yes Anesthesia Complications: No Block Receding Appropriately: Yes Patient on Ventilator: No
[2021-04-10] MEDS: IBUPROFEN 800 MG TAB PO PRN ×2 (16:49→23:59)
--- NOTE | 2021-04-11 12:09 | Progress Note ---
Assessment and Plan A: POD #2 Preeclampsia P: Follow Routine PostOp Orders Monitor BPs Subjective - Subjective Date of service: 04/11/21 Principal diagnosis: POD#1 C/S for breech; now preeclampsia on mag sulfate Interval history: Care at [facility], course complicated by non- compliance with visits. Patient reports: appetite normal, voiding normally, pain well controlled, flatus, ambulating normally [place]: doing well, bottle feeding Objective - Vital Signs Latest vital signs: Vital Signs Temp Pulse Resp BP BP Pulse Ox Pulse Ox 04/11/21 08:44 98.7 F 90 20 116/68 95 04/11/21 04:55 98.1 F 76 20 114/64 94 04/11/21 00:21 98.1 F 82 20 114/63 97 04/10/21 20:35 98.1 F 79 20 124/72 98 04/10/21 20:10 98 04/10/21 16:30 98.1 F 74 18 115/69 04/10/21 15:00 98.5 F 74 17 114/68 98 98 04/10/21 14:14 82 120/89 98 04/10/21 14:09 78 98 04/10/21 14:04 78 98 04/10/21 13:59 78 98 04/10/21 13:54 71 97 04/10/21 13:49 77 98 04/10/21 13:44 72 127/76 98 04/10/21 13:39 73 99 04/10/21 13:34 75 98 04/10/21 13:29 65 97 04/10/21 13:24 67 97 04/10/21 13:19 66 98 04/10/21 13:14 79 118/71 97 04/10/21 13:09 66 98 04/10/21 13:04 65 98 04/10/21 12:59 68 98 04/10/21 12:54 66 98 04/10/21 12:49 65 98 04/10/21 12:44 64 116/70 97 04/10/21 12:39 68 98 04/10/21 12:34 65 98 04/10/21 12:29 68 98 04/10/21 12:24 66 98 04/10/21 12:19 71 98 04/10/21 12:14 67 117/70 98 04/10/21 12:09 70 99 Intake and Output 04/10/21 04/11/21 04/11/21 22:59 06:59 14:59 Intake Total 480 240 360 Output Total 400 900 Balance 80 240 -540 Intake: Oral 480 120 Intake, Free Water 240 240 Output: Urine 400 900 Void 400 900 Other: Total, Intake Amount 240 120 Total, Output Amount 400 900 - Exam Breasts: Present: normal Cardiovascular: Present: Regular rate Lungs: Present: Clear to auscultation, Normal air movement Abdomen: Present: normal appearance, soft, normal bowel sounds Uterus: Present: normal, firm, fundal height below umbilicus Extremities: Present: normal Incision: Present: normal, dry, intact
[2021-04-11] MEDS: IBUPROFEN 800 MG TAB PO PRN ×2 (12:58→23:39)
--- NOTE | 2021-04-12 11:43 | Progress Note ---
Assessment and Plan A; S/P Subjective - Subjective Date of service: 04/12/21 Principal diagnosis: POD#3 C/S for breech with preeclampsia Patient reports: appetite normal, voiding normally, pain well controlled, flatus, ambulating normally : doing well, nursing well Objective - Vital Signs Latest vital signs: Vital Signs Temp Pulse Resp BP Pulse Ox Pulse Ox 04/12/21 08:43 98.6 F 76 20 131/68 97 04/12/21 08:00 98 04/12/21 05:56 97.4 F L 65 16 124/76 98 04/12/21 00:27 98.3 F 79 18 134/71 98 04/11/21 23:39 21 04/11/21 20:51 99.9 F H 71 18 132/79 98 04/11/21 20:30 98 04/11/21 16:58 71 18 133/70 97 Intake and Output 04/11/21 04/12/21 04/12/21 22:59 06:59 14:59 Intake Total 1080 240 240 Output Total 350 Balance 730 240 240 Intake: Oral 480 240 Intake, Free Water 600 240 Output: Urine 350 Void 350 Other: Total, Intake Amount 480 240 Total, Output Amount 350 # Voids Void 1 1 1 - Exam Breasts: Present: normal Abdomen: Present: normal appearance, soft, normal bowel sounds Vulva: both: normal Uterus: Present: normal, firm, fundal height below umbilicus Extremities: Present: normal Incision: Present: normal, dry, intact
--- NOTE | 2021-04-12 12:12 | Discharge Summary ---
Providers - Providers Date of Admission: 04/09/21 10:01 Date of discharge: 04/12/21 Attending physician: MARLO JOSEPH JR, MD Primary care physician: MARLO JOSEPH JR, MD Hospitalization Reason for admission: active labor, IUP at term Delivery: Procedure: primary low transverse Episiotomy: none Laceration: none Incision: normal, dry, intact Other procedures: other (MgSo4 r/t preeclampsia) Discharge diagnosis: IUP at term delivered [place] baby: male Hospital course: Pt was admitted in labor and had a primary LTCS r/t breech presentation. She dev preeclampsia and was started on MgSo4. See H&p, delivery summary, and pp notes. Condition at discharge: Stable Disposition: HOME / SELF CARE / HOMELESS Plan - Discharge Medications Prescriptions: Ibuprofen [Motrin 800 MG tab] 800 mg PO Q6H PRN #30 tablet PRN Reason: Pain, Mild (1-3) oxyCODONE /ACETAMINOPHEN [Percocet 5/325 mg] 1 tab PO Q6H PRN #30 tablet PRN Reason: Pain, Moderate (4-6) - Provider Discharge Summary Activity: routine, no sex for 6 weeks, no heavy lifting 4 weeks, no strenuous exercise Diet: other (low Na) Instructions: routine Additional instructions: [] Smoking cessation referral if applicable(refer to patient education folder for contact #) [] Refer to [facility] Booklet Call your doctor immediately for: * Fever > 100.5 * Heavy vaginal bleeding ( >1 pad per hour) * Severe persistent headache * Shortness of breath * Reddened, hot, painful area to leg or breast * Drainage or odor from incision. * Keep incision clean and dry at all times and follow doctor's instructions regarding bathing/showering - Follow up plan Follow up: MARLO JOSEPH JR, MD [Primary Care Provider] - 14 Days
[2021-04-12 14:27] VITALS: BP 131/59
[2021-04-12] MEDS: IBUPROFEN 800 MG TAB PO PRN (14:38)
== END 2021-04-12 16:00 | disposition home or self-care (01) | DRG 788 ==
LOC: TRG 10:00 → APU 10:01 → LD 10:01 → TRG 12:52 → LD 17:41 → OB 04-10 14:40
PROVIDERS: ADMIT Obstetrics & Gynecology; ATTEND Obstetrics & Gynecology
PROC: 10D00Z1 Extraction of Products of Conception, Low, Open Approach (ICD-10-PCS; principal; 2021-04-09)
DX: O32.1XX0 Maternal care for breech presentation, not applicable or unspecified (principal); Z3A.40 40 weeks gestation of pregnancy; Z20.822 Contact with and (suspected) exposure to COVID-19; O77.0 Labor and delivery complicated by meconium in amniotic fluid; Z37.0 Single live birth; O14.95 Unspecified pre-eclampsia, complicating the puerperium
CPT/HCPCS: 36415; 59025; 82565; 82805; 83615; 83735; 84450; 84460; 84550; 85007; 85014; 85018; 85025; 85027; 86850; 86900; 86901; 88307; G0378; J0330; J0360; J0690; J1100; J1170; J1885; J2270; J2405; J2590; J2704; J3010; J3475; J3490; J7120; U0003